=== PATIENT | male | born 1990 | race Hispanic/Latino ===

== ENCOUNTER 2022-09-21 04:37 | Emergency (ER) | payer SELFPAY ==
[2022-09-21] VITALS (10 sets, daily range): BP systolic 101–130; BP diastolic 61–78
[~2022-09-21] VITALS: Ht 167.6 cm; Wt 21.0 kg
[2022-09-21 05:13] LABS: BASO% 0.6 % (0-3); EOS% 2.4 % (0-8); HEMATOCRIT 42.1 % (39.0-50.0); HEMOGLOBIN 14.2 g/dl (14.0-18.0); LYMPH% 33.7 % (15-41); MEAN CELL VOLUME 86.3 fL CALC (80.0-100.0); MEAN CORPUSCULAR HGB 29.1 pG CALC (26.0-32.0); MEAN CORPUSCULAR HGB CONC 33.7 g/dL CAL (32.0-36.0); MONO% 9.5 % (2-13); NEUT# 4.72 thou/uL (1.82-7.42); NEUT% 52.8 % (42-76); RED BLOOD COUNT 4.88 mill/uL (4.70-6.10); URINE BILIRUBIN - DIPSTICK NEGATIVE (NEGATIVE); URINE BLOOD DIPSTICK NEGATIVE (NEGATIVE); URINE COLOR YELLOW; URINE GLUCOSE - DIPSTICK NEGATIVE (NEGATIVE); URINE KETONE NEGATIVE (NEGATIVE); URINE LEUK ESTERASE NEGATIVE (NEGATIVE); URINE PROTEIN - DIPSTICK NEGATIVE (NEG-TRACE); URINE UROBILINOGEN - DIPSTICK 0.2 E.U./dL (0.2)
[2022-09-21 05:16] LABS: URINE NITRITE - DIPSTICK NEGATIVE (Negative)
[2022-09-21 05:29] LABS: ALBUMIN 4.5 g/dL (3.2-5.0); ALKALINE PHOSPHATASE 76 u/l (38-126); ANION GAP 13 (6-22 (CALC)); BUN 15 mg/dL (9-20); BUN/CREATININE RATIO 21 (12-20 (CALC)); CARBON DIOXIDE 22 mmol/l (22-30); CHLORIDE 107 mmol/l (95-108); CREATININE 0.7 mg/dL (0.7-1.3); GFR FOR AFR.AMER. > 60 ML/MIN (>=60 (CALC)); GFR OTHER RACES > 60 ML/MIN (>=60 (CALC)); SGOT/AST 27 u/l (17-59); SODIUM 138 mmol/l (137-146); TOTAL PROTEIN 7.6 g/dL (6.3-8.2)
== END 2022-09-21 06:58 | disposition home or self-care (01) | DRG 204 ==
LOC: ED 04:37
PROVIDERS: Emergency Medicine
DX: R07.81 Pleurodynia (principal); I10 Essential (primary) hypertension

== ENCOUNTER 2022-10-22 17:37 | Emergency (ER) | payer SELFPAY ==
[~2022-10-22] VITALS: Ht 167.6 cm; Wt 68.0 kg
[2022-10-22 18:29] LABS: BASO% 0.7 % (0-3); EOS% 2.5 % (0-8); HEMATOCRIT 39.6 % (39.0-50.0); HEMOGLOBIN 13.6 g/dl (14.0-18.0); LYMPH% 39.6 % (15-41); MEAN CELL VOLUME 84.4 fL CALC (80.0-100.0); MEAN CORPUSCULAR HGB CONC 34.3 g/dL CAL (32.0-36.0); MONO% 9.3 % (2-13); NEUT# 3.4 thou/uL (1.82-7.42); NEUT% 46.9 % (42-76); RED BLOOD COUNT 4.69 mill/uL (4.70-6.10); RED CELL DISTRI WIDTH 12.4 % (11.5-15.5)
[2022-10-22 18:49] LABS: ALBUMIN 4.7 g/dL (3.2-5.0); ALKALINE PHOSPHATASE 70 u/l (38-126); BILIRUBIN, TOTAL 0.7 mg/dL (0.2-1.3); BUN 10 mg/dL (9-20); BUN/CREATININE RATIO 13 (12-20 (CALC)); CARBON DIOXIDE 20 mmol/l (22-30); CHLORIDE 105 mmol/l (95-108); CREATININE 0.8 mg/dL (0.7-1.3); GFR FOR AFR.AMER. > 60 ML/MIN (>=60 (CALC)); GFR OTHER RACES > 60 ML/MIN (>=60 (CALC)); SGOT/AST 26 u/l (17-59); SODIUM 139 mmol/l (137-146); TOTAL PROTEIN 8.2 g/dL (6.3-8.2)
[2022-10-22 18:50] LABS: ANION GAP 17 (6-22 (CALC)); POTASSIUM 3.1 mmol/l (3.5-5.1)
[2022-10-22 19:20] LABS: URINE BILIRUBIN - DIPSTICK NEGATIVE (NEGATIVE); URINE BLOOD DIPSTICK NEGATIVE (NEGATIVE); URINE COLOR YELLOW; URINE GLUCOSE - DIPSTICK NEGATIVE (NEGATIVE); URINE KETONE TRACE mg/dL (NEGATIVE); URINE LEUK ESTERASE NEGATIVE (NEGATIVE); URINE NITRITE - DIPSTICK NEGATIVE (Negative); URINE PH 5.5 (4.5-8.0); URINE PROTEIN - DIPSTICK TRACE mg/dL (NEG-TRACE); URINE SPECIFIC GRAVITY 1.025; URINE UROBILINOGEN - DIPSTICK 0.2 E.U./dL (0.2)
[2022-10-22] MEDS ORDERED: ONDANSETRON4 MG PO (19:37)
[2022-10-22] MEDS ORDERED: NAPROXEN500 MG PO (19:37)
[2022-10-22 19:45] VITALS: BP 121/58
[2022-10-22 19:57] VITALS: BP 125/59
[2022-10-22 20:00] VITALS: BP 137/57
[2022-10-22 20:15] VITALS: BP 128/59
== END 2022-10-22 20:20 | disposition home or self-care (01) | DRG 310 ==
LOC: ED 17:37
PROVIDERS: Family Medicine
DX: R00.2 Palpitations (principal); R51.9 Headache, unspecified; E87.6 Hypokalemia; I10 Essential (primary) hypertension; Z20.822 Contact with and (suspected) exposure to COVID-19